=== PATIENT | male | born 1945 | race Caucasian/White ===

== ENCOUNTER 2017-01-20 21:09 | Emergency (ER) | payer MEDICARE, OTHER ==
[2017-01-20] MEDS ORDERED: TETANUS/DIPHTHERIA/PERTUSSIS 0.5 ML SYRINGE IM ONE ×2 (21:37→21:43)
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
--- NOTE | 2017-01-20 22:52 | XRAY Preliminary Report ---
Exam: XR Shoulder 3 View RT IMPRESSION: Normal shoulder radiography. [facility] SITE ID: [id number]
--- NOTE | 2017-01-20 22:54 | XRAY Report ---
EXAM: RIGHT SHOULDER RADIOGRAPHY EXAM DATE: 01/20/2017 10:35 PM. CLINICAL HISTORY: Shoulder inj. COMPARISON: None. TECHNIQUE: 3 views. FINDINGS: Bones: Normal. No fracture or bone lesion. Joints: The glenohumeral and acromioclavicular joints are normal. Soft tissues: The visualized hemithorax is unremarkable. No soft tissue swelling. IMPRESSION: Normal shoulder radiography. [facility] Referring Provider Line: [phone] SITE ID: [id number]
[2017-01-20 23:44] VITALS: BP 160/76
== END 2017-01-20 23:42 | disposition home or self-care (01) ==
LOC: ED 21:09
DX: S43.101A Unspecified dislocation of right acromioclavicular joint, initial encounter (principal); S70.01XA Contusion of right hip, initial encounter; S40.211A Abrasion of right shoulder, initial encounter; S50.311A Abrasion of right elbow, initial encounter; S80.212A Abrasion, left knee, initial encounter; V18.4XXA Pedal cycle driver injured in noncollision transport accident in traffic accident, initial encounter; Y92.828 Other wilderness area as the place of occurrence of the external cause; R03.0 Elevated blood-pressure reading, without diagnosis of hypertension; N40.0 Benign prostatic hyperplasia without lower urinary tract symptoms; Z23 Encounter for immunization
CPT/HCPCS: 90471; 99283

== ENCOUNTER 2017-04-07 09:07 | Outpatient (CLI) | payer MEDICARE, OTHER ==
[2017-04-07 17:55] LABS: BASOPHILS # (AUTO) 0.1 10^3/uL (0.0-0.1); BASOPHILS % (AUTO) 0.7 %; EOSINOPHILS % (AUTO) 0.4 %; HCT - HEMATOCRIT 30.7 % (42.0-52.0); HGB - HEMOGLOBIN 10.2 g/dL (14.0-18.0); LYMPHOCYTES # (AUTO) 0.6 10^3/uL (1.5-3.5); LYMPHOCYTES % (AUTO) 6.4 %; MEAN CORPUSCULAR HEMOGLOBIN 30.8 pg (27.0-31.0); MEAN CORPUSCULAR HGB CONC 33.2 g/dL (32.0-36.0); MEAN CORPUSCULAR VOLUME 92.7 fL (80.0-94.0); MONOCYTES # (AUTO) 0.8 10^3/uL (0.0-1.0); MONOCYTES % (AUTO) 8.8 %; NEUTROPHILS # (AUTO) 7.4 10^3/uL (1.5-6.6); NEUTROPHILS % (AUTO) 83.7 %; NUCLEATED RED BLOOD CELLS AUTO 0.1 /100WBC; RED BLOOD COUNT 3.31 10^6/uL (4.70-6.10); RED CELL DISTRIBUTION WIDTH 13.5 % (12.0-15.0); UNCORRECTED WHITE BLOOD COUNT 8.9 x10^3/uL; WHITE BLOOD COUNT 8.9 x10^3/uL (4.8-10.8)
[2017-04-07 18:15] LABS: ALBUMIN/GLOBULIN RATIO 1.3 (1.0-2.2); BILIRUBIN,TOTAL 0.8 mg/dL (0.2-1.0); BUN - BLOOD UREA NITROGEN 46 mg/dL (6-20); CALCIUM 9.1 mg/dL (8.5-10.3); CARBON DIOXIDE - CO2 20 mmol/L (21-32); CHLORIDE 102 mmol/L (101-111); CHOL/HDL RATIO 3.3 (<5.0); CHOLESTEROL 187 mg/dL; GFR - MDRD 15 (>89); GLUCOSE 114 mg/dL (70-100); HDL CHOLESTEROL 57 mg/dL; POTASSIUM 4.3 mmol/L (3.5-5.0); SODIUM 135 mmol/L (135-145); TOTAL PROTEIN 7.1 g/dL (6.7-8.2); TRIGLYCERIDES 83 mg/dL; VLDL CHOLESTEROL 17 mg/dL
[2017-04-07 18:23] LABS: THYROID STIMULATING HORMONE 1.49 uIU/mL (0.34-5.60)
[2017-04-07 18:29] LABS: FERRITIN 366.8 ng/mL (23.9-336.2)
== END 2017-04-07 09:08 | disposition home or self-care (01) ==
LOC: LAB.S 09:07
PROVIDERS: ATTEND Family Medicine
DX: I10 Essential (primary) hypertension (principal); D64.9 Anemia, unspecified; R97.20 Elevated prostate specific antigen [PSA]; N28.9 Disorder of kidney and ureter, unspecified
CPT/HCPCS: 36415; 80053; 80061; 82607; 82728; 84153; 84443; 85025

== ENCOUNTER 2018-07-24 02:29 | Emergency (ER) | payer MEDICARE, OTHER ==
[2018-07-24] MEDS ORDERED: SODIUM CHLORIDE 0.9% 1,000 ML IV ONE (03:11)
[2018-07-24] MEDS ORDERED: FAMOTIDINE 20 MG/2 ML VIAL IVP STA (03:11)
[2018-07-24] MEDS ORDERED: ONDANSETRON 4 MG/2 ML VIAL IVP STA (03:11)
--- NOTE | 2018-07-24 03:11 | ED Physician Documentation ---
PD HPI NVD - Stated complaint Stated Complaint: VOMITING - Chief complaint Chief Complaint: Abd Pain - History obtained from History obtained from: Patient - History of Present Illness Timing - onset: How many hours ago (5-6), Today Timing - details: Abrupt onset, Still present Associated symptoms: Loss of appetite. No: Fever, Abdominal pain, Near syncope / syncope Contributing factors: Sick contact (he says his had 12 hours of nausea and vomiting couple days ago, then improved. Likely viral GE. Patient with abrupt sy mptoms this past evening. [place] okay earlier in the day. He says he feels lightheaded. He has had some vertigo at times for a month or so but this is not bothering him too much at the present.). No: Bad food, Travel, Recent antibiotics Improved by: No: Vomiting Worsened by: Eating Similar symptoms before: Has not had sx before Recently seen: Not recently seen Review of Systems Constitutional: reports: Myalgias, Fatigue. denies: Fever, Chills Ears: denies: Loss of hearing, Ear pain, Drainage/discharge, Tinnitus/ringing Nose: reports: Sinus pressure / pain (for a month or so). denies: Rhinorrhea / runny nose Throat: denies: Sore throat Cardiac: denies: Chest pain / pressure Respiratory: denies: Cough GI: reports: Nausea, Vomiting (multiple times in the past 5-6 hours, and feeling nauseated considerably still.). denies: Abdominal Pain, Diarrhea Neurologic: reports: Generalized weakness. denies: Focal weakness, Numbness, Altered mental status, Headache PD PAST MEDICAL HISTORY - Past Medical History Cardiovascular: None Respiratory: None Endocrine/Autoimmune: None GI: None : Benign prostate hypertrophy HEENT: None Psych: None Musculoskeletal: None Derm: None - Past Surgical History Past Surgical History: Yes HEENT: Tonsil/Adenoidectomy - Present Medications Home Medications: Ambulatory Orders Medication Instructions Recorded Confirmed Physical Therapy 1 unit TD ONCE #1 01/20/17 Saw [place] 160 mg PO DAILY 01/20/17 01/20/17 Meclizine [Antivert] 25 mg PO Q6H PRN #30 tablet 07/24/18 Ondansetron Odt [Zofran] 4 mg TL Q6H PRN #10 tablet 07/24/18 - Allergies Allergies/Adverse Reactions: Allergies Allergy/AdvReac Type Severity Reaction Status Date / Time Penicillins AdvReac Itching Verified 09/08/13 15:04 - Social History Does the pt smoke?: No Smoking Status: Never smoker Does the pt drink ETOH?: No Does the pt have substance abuse?: No - Immunizations Immunizations are current?: Yes - POLST Patient has POLST: No PD ED PE NORMAL - Vitals Vital signs reviewed: Yes - General General: Alert and oriented X 3, No acute distress (but seems uncomfortable due to nausea and holding emesis bag. ), Well developed/nourished - HEENT HEENT: PERRL, EOMI (no nystagmus), Ears normal, Pharynx benign - Neck Neck: Supple, no meningeal sign, No adenopathy - Cardiac Cardiac: RRR, No murmur - Respiratory Respiratory: Clear bilaterally - Derm Derm: Normal color, Warm and dry - Extremities Extremities: No tenderness to palpate, Normal ROM s pain - Neuro Neuro: Alert and oriented X 3, program project manager 2-12 intact, No motor deficit, Normal speech Results - Vitals Vitals: Vital Signs - 24 hr 07/24/18 07/24/18 07/24/18 02:36 04:31 04:43 Temperature 36.9 C 38.4 C H 36.9 C Heart Rate 82 71 Respiratory 16 16 Rate Blood Pressure 152/91 H 117/74 O2 Saturation 99 97 Oxygen O2 Source Room air PD MEDICAL DECISION MAKING - ED course Complexity details: re-evaluated patient (feeling quite better with IV fluids and Zofran. ), considered differential (he has had some vertigo at times for a month or so, with some sinus congestion. Current vomiting seems viral GE and his was sick with it couple days ago. ), d/w patient Departure - Departure Disposition: Home, Self Care Clinical Impression: Vertigo Nausea and vomiting Qualifiers: Vomiting type: unspecified Vomiting Intractability: non-intractable Qualified Code(s): R11.2 - Nausea with vomiting, unspecified Condition: Stable Record reviewed to determine appropriate education?: Yes Instructions: ED Gastroenteritis Vs Food Poison Prescriptions: Meclizine [Antivert] 25 mg PO Q6H PRN #30 tablet PRN Reason: Vertigo Ondansetron Odt [Zofran] 4 mg TL Q6H PRN #10 tablet PRN Reason: Nausea / Vomiting Comments: This sounds likely to be a viral stomach flu and should last for a day or 2. Small frequent fluids and bland food. Ondansetron if needed for nausea. Recheck if worse despite medication or if it lasts more than a couple of days or other symptoms develop such as significant pain, fevers, vomiting blood, severe diarrhea (some diarrhea will likely occur). Discharge Date/Time: 07/24/18 04:44
[2018-07-24] MEDS ORDERED: ONDANSETRON ODT 4 MG Prepack 2 TL PRN (04:22)
[2018-07-24 04:32] VITALS: BP 117/74
[2018-07-24] MEDS ORDERED: MECLIZINE 12.5 MG TABLET PO STA (04:37)
== END 2018-07-24 04:44 | disposition home or self-care (01) ==
LOC: ED 02:29
DX: R42 Dizziness and giddiness (principal); R11.2 Nausea with vomiting, unspecified
CPT/HCPCS: 96361; 96374; 99283; A9270